=== PATIENT | male | born 1995 | race Caucasian/White ===

== ENCOUNTER 2019-12-18 15:18 | Emergency (ER) | payer SELFPAY ==
--- NOTE | 2019-12-18 15:52 | PDOC ---
Rapid Medical Evaluation Time Seen by Provider: 12/18/19 15:50 Medical Evaluation: 12/18/19 15:51 R hand dominant pt, presents to the ER for a laceration to his L 2nd digit after cutting it on glass. Exam: bleeding 2cm laceration to the distal L 2nd digit Orders: boostrix Pt to proceed to the ER for further evaluation Discharge Disposition - Diagnosis Laceration - Referrals - Patient Instructions - Post Discharge Activity
[2019-12-18] MEDS ORDERED: DIPHTH,PERTUSS(ACELL),TET 0.5 ML DISP.SYRIN IM ONE (15:53)
[2019-12-18 15:55] VITALS: BP 137/50; PULSE 85; TEMP 97.8; BMI 23.3
--- NOTE | 2019-12-18 16:28 | PDOC ---
History of Present Illness - General Chief Complaint: Laceration Stated Complaint: LEFT FINGER/LACERATION Time Seen by Provider: 12/18/19 15:50 History Source: Patient Exam Limitations: No Limitations - History of Present Illness Initial Comments: 12/18/19 16:24 HISTORY OF PRESENT ILLNESS: 24-year-old male denies medical history presents emergency department for evaluation of laceration to his left index finger while holding a glass today. Patient reports he was holding a glass in his hand and accidentally squeezed too tight causing it to shatter in his hand lacerating the fingertip of his left index finger. Patient washed out the wound at home and came to the emergency department for evaluation. Patient is right-hand dominant. Unsure of last tetanus immunization. No recent travel or sick contacts. PAST MEDICAL HISTORY: Denies past medical history SURGICAL HISTORY: Denies ALLERGIES: No known drug allergies REVIEW OF SYSTEMS General/Constitutional: Denies fever or chills. Denies weakness, weight change. HEENT: Denies change in vision. Denies ear pain or discharge. Denies sore throat. Cardiovascular: Denies chest pain or shortness of breath. Respiratory: Denies cough, wheezing, or hemoptysis. Gastrointestinal: Denies nausea, vomiting, diarrhea or constipation. Denies rectal bleeding. Genitourinary: Denies dysuria, frequency, or change in urination. Musculoskeletal: Denies joint or muscle swelling or pain. Denies neck or back pain. Skin and breasts: See HPI Neurologic: Denies headache, vertigo, loss of consciousness, or loss of sensation. Psychiatric: Denies depression or anxiety. Endocrine: Denies increased thirst. Denies abnormal weight change. Hematologic/Lymphatic: Denies anemia, easy bleeding, or history of blood clots. Allergic/Immunologic: Denies hives or skin allergy. Denies latex allergy. PHYSICAL EXAM General Appearance: Well-appearing, appropriately dressed. No apparent distress, no intoxication. Musculoskeletal/Extremities: Normal inspection. Normal capillary refill. Pelvis Stable. No CVA tenderness. No tenderness to extremities, pedal edema, swelling, erythema or deformity. Patient able to flex and extend left index finger against resistance. Integumentary: Approximate 3 cm linear superficial laceration present to the volar aspect of the left index finger. 12/18/19 16:36 Past History - Medical History Allergies/Adverse Reactions: Allergies Allergy/AdvReac Type Severity Reaction Status Date / Time No Known Allergies Allergy Verified 12/18/19 16:00 Home Medications: Ambulatory Orders NK [No Known Home Medication] 12/18/19 - Psycho-Social/Smoking History Smoking History: Never smoked - Substance Abuse Hx (Audit-C & DAST Scrn) How often the patient has six or more drinks on one occasion: Never Score: In Men: 4 or > Positive; In Women: 3 or > Positive: 0 Screen Result (Pos requires Nsg. Audit-10AR): Negative *Physical Exam - Vital Signs Last Vital Signs Temp Pulse Resp BP Pulse Ox 97.8 F 85 20 137/50 L 100 12/18/19 15:52 12/18/19 15:52 12/18/19 15:52 12/18/19 15:52 12/18/19 15:52 ED Treatment Course - RADIOLOGY Radiology Studies Ordered: Category Date Time Status FINGER(S) LEFT [RAD] Stat Radiology 12/18/19 16:08 Ordered - Medications Given in the ED: ED Medications Discontinued Medications Generic Name Dose Route Start Last Admin Trade Name Freq PRN Reason Stop Dose Admin Diphtheria/Tetanus/Acell Pertussis 0.5 ml 12/18/19 15:53 12/18/19 16:08 Boostrix - IM 12/18/19 15:54 0.5 ml .ONCE ONE Administration Medical Decision Making - Medical Decision Making 12/18/19 16:26 A/P: 24-year-old male with laceration to left index finger Approximate 3 cm linear superficial laceration present to the volar aspect of the left index finger Able to fully flex and extend left index finger against resistance without difficulty. Capillary refill is less than 3 seconds. X-ray is read by me: No obvious radiopaque foreign body noted. Boostrix Laceration repair-see procedure note for details Likely discharge home with hand surgery follow-up 12/18/19 16:36 Discharge - Discharge Information Problems reviewed: Yes Clinical Impression/Diagnosis: Laceration Condition: Stable - Admission No - Follow up/Referral - Patient Discharge Instructions Additional Instructions: Keep wound clean and dry Avoid strenuous activity/exercise to create a hot or sweaty environment until sutures are removed Reapply bacitracin ointment 2 times a day until sutures are removed Return to emergency Department or private physician in 7-10 days for suture removal May use Tylenol or Motrin for pain relief Return immediately to emergency department for redness, swelling, pain, or signs of infection - Post Discharge Activity Work/Back to School Note: Back to Work
== END 2019-12-18 17:43 | disposition home or self-care (01) ==
LOC: JERFT 15:18 → JER 15:18 → JERFT 17:43
PROC: 3E0234Z Introduction of Serum, Toxoid and Vaccine into Muscle, Percutaneous Approach (ICD-10-PCS; principal; 2019-12-18)
DX: S61.211A Laceration without foreign body of left index finger without damage to nail, initial encounter (principal)
CPT/HCPCS: 73140-TC-LT-FY; 90715; 99283-25